=== PATIENT | female | born 1955 | race Caucasian/White ===

== ENCOUNTER 2019-01-01 11:29 | Emergency (ER) | payer OTHER ==
--- OUTSIDE RECORDS SUMMARY | 2019-01-01 11:55 | XMS REPORT | Continuity of Care Document ---
:1955 External Reference #:[id number] Author Name Evonne Garza Care Team Providers Name Role Phone Adebayo Chao MD Primary Care Physician Unavailable Payers Date Identification Numbers Payment Provider Subscriber Policy Number: [id number] Daniel Acveedo PayID: [id number] [address] [place] [address] Problems Active Problems Provider Date Closed fracture of acromial end of clavicle Agustín Lubin M.D. Onset: 07/05 Family History Date Family Member(s) Observation Comments General Heart Disease Social History Type Date Description Comments Sex Unknown Lives With Alone Occupation Retired ETOH Use Drinks 3 Alcoholic Beverages Per Day Tobacco Use Start: Unknown Patient is a current smoker, smokes every day Smoking Status Reviewed: 12/21/18 Patient is a current smoker, smokes every day Exercise Type/Frequency Exercises sporadically Allergies, Adverse Reactions, Alerts Active Allergies Reaction Severity Comments Date Tetracycline 07/05/2018 Medications Active Medications SIG Qnty Indications Ordering Provider Date Tlso Brace When Oob S22.009A Vassilios 12/21/2018 MD Francheska Cyclobenzaprine HCL take 1 tablet 60tabs S42.031A Agustín Lubin, 2018 10mg up to three M.D. Tablets times a day as needed Oxycodone-Acetaminophen 1 to 2 tabs PO 28tabs S42.031A Agustín Lubin, bid prn M.D. 5-325mg Tablets Hydrochlorothiazide/With 1 daily Unknown spironol 25-25 Carvedilol 1 tab by mouth Unknown 25mg Tablets twice a day Naproxen Sodium Unknown 220mg Tablets Omeprazole 1 by mouth Unknown 40mg Capsules DR every day History Medications Cyclobenzaprine HCL 1 by mouth three Unknown - 07/04/2018 10mg Tablets times a day Hydrocodone-Acetaminophen 1 or 2 tabs by mouth Unknown - 12/2018 5-325mg every 6-8 hours as Tablets needed for pain Vital Signs Date Vital Result Comment 12/21/2018 2:34pm Height 61 inches 5'1" Weight 109.00 lb BP Systolic Sitting 110 mmHg BP Diastolic Sitting 70 mmHg Pain Level 7 BMI (Body Mass Index) 20.6 kg/m2 09/16/2018 11:15am Height 61 inches 5'1" Weight 109.00 lb Heart Rate 72 /min BP Systolic Recheck 118 mmHg BP Diastolic Recheck 74 mmHg Respiratory Rate 16 /min Body Temperature 97.9 F BMI (Body Mass Index) 20.6 kg/m2 08/04/2018 9:58am Height 61 inches 5'1" Weight 112.00 lb Heart Rate 72 /min BP Systolic Recheck 118 mmHg BP Diastolic Recheck 80 mmHg Respiratory Rate 16 /min Body Temperature 98.0 F BMI (Body Mass Index) 21.2 kg/m2 07/14/2018 10:24am Height 61 inches 5'1" Weight 108.00 lb Heart Rate 80 /min BP Systolic Recheck 122 mmHg BP Diastolic Recheck 76 mmHg Respiratory Rate 16 /min Body Temperature 97.9 F BMI (Body Mass Index) 20.4 kg/m2 07/05/2018 11:49am Height 61 inches 5'1" Weight 110.00 lb Heart Rate 80 /min BP Systolic Recheck 134 mmHg BP Diastolic Recheck 84 mmHg Respiratory Rate 16 /min Body Temperature 97.8 F BMI (Body Mass Index) 20.8 kg/m2 Encounters Type Date Location Provider Dx Diagnosis Office Visit 09/16/2018 Orthopedic Agustín Lubin, S42.031D Disp fx of 11:15a [facility] Super[facility] AT M.D. lateral end r [place] clavicle, subs for fx w routn heal Office Visit 08/04/2018 Orthopedic Agustín Lubin S42.031D Disp fx of 10:00a [facility] AT M.D. lateral end r [place] clavicle, subs for fx w routn heal Office Visit 07/14/2018 Orthopedic Agustín Lubin, S42.031D Disp fx of 10:15a [facility] AT M.D. lateral end r [place] clavicle, subs for fx w routn [facility] Office Visit 07/05/2018 Orthopedic Agustín Lubin, S42.031A Disp fx of 11:30a [facility] AT M.D. lateral end of [place] right clavicle, init for clos fx Plan of Treatment Future Appointment(s):01/20/2019 1:30 pm - A[facility] Bustillo at [facility]12/21/2018 - Isidra Pritchard, MDS22.009A Unsp fracture of unsp thoracic vertebra, init for clos fxNew Medication:Tlso Brace - When OobNew Xrays:CT Spine Lumbar W/O, Ordered: 12/21/18Follow up:RV in 1-2 weeks with Myron
--- NOTE | 2019-01-01 12:59 | ED ---
Adult Trauma - HPI Summary HPI Summary: A 63 y/o female presents to [facility] with a chief complaint of a neck and left shoulder pain today. She says that she woke up with this pain. Her family claims that she may have been falling these past few weeks. She has a broken clavicle on her right side and 3 broken ribs on her left side on 07/03/18. On she had a compound fracture and a few weeks ago she reports that she broke more ribs. An MRI of her back was done one week ago, but they do not know the results. The patent is a smoker, smoking 2 ppd and has been taking Tramadol and muscle relaxers. She rates her pain as a 10/10 in severity. She was seen at [facility] for her previous injuries. 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 Mechanism of Injury: Unknown - potentially from falls Ambulatory at the Scene: Yes Onset/Duration: Started Weeks Ago, Still Present Onset of Pain: Days, Post Accident, Prior to Arrival Onset Severity: Severe Current Severity: Severe Pain Intensity: 10 Pain Scale Used: 0-10 Numeric Location: Neck, Other - left shoulder Aggravating Factor(s): Nothing Alleviating Factor(s): Nothing Associated Signs & Symptoms: Negative: Fever - Allergy/Home Medications Allergies/Adverse Reactions: Allergies Allergy/AdvReac Type Severity Reaction Status Date / Time tetracycline Allergy Swelling Verified 01/01/19 11:39 Of Face,Lips,& Throat Home Medications: Home Medications Carvedilol TAB NF [Coreg TAB NF] 12.5 mg PO BEDTIME 01/01/19 [History Confirmed 01/01/19] Carvedilol TAB NF [Coreg TAB NF] 25 mg PO DAILY 01/01/19 [History Confirmed ] Cilostazol TAB* [Pletal TAB*] 100 mg PO DAILY 01/01/19 [History Confirmed ] Cyclobenzaprine TAB* [Flexeril 10 MG TAB*] 10 mg PO TID PRN 01/01/19 [History Confirmed 01/01/19] Omeprazole 40 mg PO DAILY 01/01/19 [History Confirmed 01/01/19] Spironolact/Hydrochlorothiazid [Aldactazide 25-25 mg-] 1 tab PO DAILY 01/01/19 [ History Confirmed 01/01/19] traMADol TAB* [Ultram*] 25 mg PO Q8H PRN 01/01/19 [History Confirmed 01/01/19] PMH/Surg Hx/FS Hx/Imm Hx Endocrine/Hematology History: Denies: Hx Diabetes Cardiovascular History: Reports: Hx Hypertension Infectious Disease History: No Infectious Disease History: Denies: Traveled Outside the [place] in Last 30 Days - Family History Known Family History: Positive: Hypertension, Diabetes - Social History Alcohol Use: Daily Alcohol Amount: 1-2 bottles wine daily - has not drank in 2 weeks Substance Use Type: Reports: None Smoking Status (MU): Heavy Every Day Tobacco Smoker Review of Systems Negative: Fever Positive: Arthralgia - left shoulder pain, Myalgia - neck pain All Other Systems Reviewed And Are Negative: Yes Physical Exam - Summary Physical Exam Summary: VITAL SIGNS: Reviewed. GENERAL: Patient is a well-developed and nourished FEMALE who is lying comfortable in the stretcher. Patient is not in any acute respiratory distress. HEAD AND FACE: No signs of trauma. No ecchymosis, hematomas or skull depressions. No sinus tenderness. EYES: PERRLA, EOMI x 2, No injected conjunctiva, no nystagmus. EARS: Hearing grossly intact. Ear canals and tympanic membranes are within normal limits. MOUTH: Oropharynx within normal limits. NECK: Supple, trachea is midline, no adenopathy, no JVD, no carotid bruit, c- spine tenderness CHEST: Symmetric, no tenderness at palpation. LUNGS: Clear to auscultation bilaterally. No wheezing or crackles. CVS: Regular rate and rhythm, S1 and S2 present, no murmurs or gallops appreciated. ABDOMEN: Soft, non-tender. No signs of distention. No rebound, no guarding, and no masses palpated. Bowel sounds are normal. EXTREMITIES: C-spine tenderness, decreased ROM left shoulder secondary to pain, good pulses, good capillary refill. NEURO: Alert and oriented x 3. No acute neurological deficits. Speech is normal and follows commands. SKIN: Dry and warm. Triage Information Reviewed: Yes Vital Signs On Initial Exam: Initial Vitals Temp Pulse Resp BP Pulse Ox 98.4 F 96 16 109/81 93 01/01/19 11:34 01/01/19 11:34 01/01/19 11:34 01/01/19 11:34 01/01/19 11:34 Vital Signs Reviewed: Yes Diagnostics - Vital Signs Vital Signs Temp Pulse Resp BP Pulse Ox 01/01/19 11:34 98.4 F 96 16 109/81 93 - Laboratory Lab Statement: Any lab studies that have been ordered have been reviewed, and results considered in the medical decision making process. - Radiology shoulder x-ray Radiology Interpretation Completed By: Radiologist Summary of Radiographic Findings: 1. OSTEOPENIA. 2. OSTEOARTHRITIS. 3. NO ACUTE OSSEOUS INJURY. IF SYMPTOMS PERSIST, RECOMMEND REPEAT IMAGING. ED physician has reviewed this imaging report. - CT cervical spine CT Interpretation Completed By: Radiologist Summary of CT Findings: 1. OSTEOPENIA. 2. DEGENERATIVE DISC DISEASE AND OSTEOARTHRITIS. 3. THERE IS MULTILEVEL NEUROFORAMINAL NARROWING DESCRIBED ABOVE. 4. THERE IS MILD NARROWING OF THE CENTRAL CANAL C4-C5. ED physician has reviewed this imaging report. Adult Trauma Course/Dx - Course Assessment/Plan: A 63 y/o female presents to [facility] with a chief complaint of a neck and left shoulder pain today. She says that she woke up with this pain. Her family claims that she may have been falling these past few weeks. She has a broken clavicle on her right side and 3 broken ribs on her left side on . On 12/09/18 she had a compound fracture and a few weeks ago she reports that she broke more ribs. An MRI of her back was done one week ago, but they do not know the results. The patent is a smoker, smoking 2 ppd and has been taking Tramadol and muscle relaxers. She rates her pain as a 10/10 in severity. She was seen at [facility] for her previous injuries. Shoulder X ray IMPRESSION: 1. OSTEOPENIA. 2. OSTEOARTHRITIS. 3. NO ACUTE OSSEOUS INJURY. IF SYMPTOMS PERSIST, RECOMMEND REPEAT IMAGING. C spine CT IMPRESSION: 1. OSTEOPENIA. 2. DEGENERATIVE DISC DISEASE AND OSTEOARTHRITIS. 3. THERE IS MULTILEVEL NEUROFORAMINAL NARROWING DESCRIBED ABOVE. 4. THERE IS MILD NARROWING OF THE CENTRAL CANAL C4-C5. In the ED course the patient was given Decadron, Toradol and [place] for pain. Therefore the patient will be discharged home with follow-up with primary care physician. Patient is hemodynamically after stable alert oriented 3. - Diagnoses Provider Diagnoses: Neck pain, Shoulder pain Discharge - Sign-Out/Discharge Documenting (check all that apply): Patient Departure - DC Patient Received Moderate/Deep Sedation with Procedure: No - Discharge Plan Condition: Stable Disposition: HOME Patient Education Materials: Shoulder Pain (ED), Neck Pain (ED) Referrals: Jeremie MARIE,Adebayo Connors [Primary Care Provider] - (2-3 days) Additional Instructions: FOLLOW UP WITH YOUR PRIMARY CARE PROVIDER WITHIN 2-3 DAYS. RETURN TO THE ED FOR ANY WORSENING OR NEW SYMPTOMS. - Billing Disposition and Condition Condition: STABLE Disposition: Home - Attestation Statements Document Initiated by Philipibe: Yes Documenting Scribe: Mazin Natarajan Provider For Whom Elizabeth is Documenting (Include Credential): Jl Meng MD Scribe Attestation: Mazin Mclaughlin scribed for Jl Meng MD on 01/02/19 at 4. Scribe Documentation Reviewed: Yes Provider Attestation: The documentation as recorded by the Mazin irvin accurately reflects the service I personally performed and the decisions made by Jl hughes MD Status of Scribe Document: Viewed
[2019-01-01] MEDS ORDERED: Ketorolac *IM* INJ* 60 MG/2 ML VIAL IM ONE (15:06)
[2019-01-01] MEDS ORDERED: HYDROcodone/ACETAMIN 5-325 MG* 1 TAB PO ONE (15:06)
[2019-01-01] MEDS ORDERED: Dexamethasone IV* 4 MG/ML 1 ML (4 MG) IM ONE (15:06)
[2019-01-01 16:01] VITALS: BP 136/83
== END 2019-01-01 15:58 | disposition home or self-care (01) ==
LOC: ED 11:29
DX: M54.2 Cervicalgia (principal); M25.512 Pain in left shoulder; I10 Essential (primary) hypertension; F17.210 Nicotine dependence, cigarettes, uncomplicated; M85.80 Other specified disorders of bone density and structure, unspecified site; M19.90 Unspecified osteoarthritis, unspecified site
CPT/HCPCS: 72125; 96372; 96374; 99283; J1100; J1885

== ENCOUNTER 2019-12-08 09:33 | Observation (INO) | payer MEDICARE ==
[2019-12-08 10:35] LABS: ABS Basophils 0.1 10^3/ul (0-0.2); ABS Eosinophils 0.1 10^3/ul (0-0.6); ABS Lymphocytes 1.7 10^3/ul (1.0-4.8); ABS Monocytes 0.6 10^3/ul (0-0.8); Eosinophil % 3.1 %; Hematocrit 37 % (35-47); Hemoglobin 13.3 g/dL (12.0-16.0); Mean Corpuscular HGB Conc 36 g/dL (31-36); Mean Corpuscular Hemoglobin 36 pg (27-31); Mean Corpuscular Volume 100 fL (80-97); Platelet Count 263 10^3/uL (150-450); Red Blood Count 3.67 10^6 /uL (3.70-4.87); Red Cell Distribution Width 12 % (10-15); White Blood Count 4.5 10^3/uL (3.5-10.8)
[2019-12-08 10:40] LABS: Activated Partial Thrombo Time 35.3 seconds (26.0-38.0); INR 1.01 (0.82-1.09)
[2019-12-08 10:56] LABS: BUN/Creatinine Ratio 16.1 (8-20); Calcium 9.1 mg/dL (8.6-10.3); EGFR African American 131.5 (>60); EGFR Non-African American 108.6 (>60); Potassium 3.7 mmol/L (3.5-5.0)
[2019-12-08 11:35] LABS: BUN/Creatinine Ratio 16.1 (8-20); Calcium 8.9 mg/dL (8.6-10.3); EGFR African American 131.5 (>60); EGFR Non-African American 108.6 (>60); Potassium 3.6 mmol/L (3.5-5.0)
[2019-12-08] MEDS ORDERED: Heparin 2 UNITS/ML 1000 mls 2,000 ML IV ONE (12:35)
[2019-12-08] MEDS ORDERED: Lidocaine 1% VIAL 10 MG/ML VIAL ONE (12:35)
[2019-12-08] MEDS ORDERED: Iohexol 350 (CONTRAST) 200 ML MDV IV ONE (12:35)
[2019-12-08] MEDS ORDERED: Heparin 1,000 UNIT/ML CATH LAB 1,000 10 ml (10,000 UNITS) IV ONE (14:02)
[2019-12-08] MEDS ORDERED: fentaNYL 100 mcg/2 ml 50 MCG/ML VIAL ONE ×3 (14:02→16:45)
[2019-12-08] MEDS ORDERED: Midazolam 5 mg/5 ml VIAL 1 mg/ml 5 ml VIAL (5 mg) ONE (14:02)
[2019-12-08] MEDS ORDERED: Atropine 0.1 MG/ML 10 ml SYR (1 mg) ONE ×2 (15:27→16:36)
[2019-12-08] MEDS ORDERED: hydrALAZINE 20 mg/ml 1 ML Vial IV ONE (16:00)
[2019-12-08] MEDS ORDERED: Heparin 2 UNITS/ML 1000 mls 1,000 ML IV ONE (16:44)
[2019-12-08] MEDS ORDERED: Ondansetron 4 mg VIAL 2 MG/ML 2 ml VIAL IV PRN (17:09)
[2019-12-08] MEDS ORDERED: HYDROmorphone 1 MG/1 ML SYRINGE ONE (19:04)
[2019-12-08] MEDS ORDERED: Prochlorperazine 5 mg/ml 2 ml VIAL (10 mg) IV PRN (21:49)
[2019-12-09 05:45] LABS: ABS Eosinophils 0.1 10^3/ul (0-0.6); ABS Lymphocytes 1.3 10^3/ul (1.0-4.8); ABS Monocytes 0.8 10^3/ul (0-0.8); Hematocrit 33 % (35-47); Hemoglobin 11.6 g/dL (12.0-16.0); Mean Corpuscular HGB Conc 35 g/dL (31-36); Mean Corpuscular Hemoglobin 35 pg (27-31); Mean Corpuscular Volume 100 fL (80-97); Mean Platelet Volume 6.8 fL (7.4-10.4); Platelet Count 254 10^3/uL (150-450); Red Blood Count 3.29 10^6 /uL (3.70-4.87); Red Cell Distribution Width 13 % (10-15); White Blood Count 6.5 10^3/uL (3.5-10.8)
[2019-12-09 05:59] LABS: BUN/Creatinine Ratio 18.9 (8-20); Calcium 8.7 mg/dL (8.6-10.3); EGFR African American 140.1 (>60); EGFR Non-African American 115.8 (>60); Magnesium 1.4 mg/dL (1.9-2.7); Potassium 3.4 mmol/L (3.5-5.0)
[2019-12-09] MEDS ORDERED: Magnesium Sulfate IV 3 GM in NS 0.9% 100 ml BAG 100 ML IVPB ONE (08:16)
[2019-12-09] MEDS ORDERED: Spironolactone/HCTZ 25-25 mg PO SCH (09:00)
[2019-12-09 14:09] VITALS: BP 150/70
== END 2019-12-09 14:00 | disposition home or self-care (01) ==
LOC: CHICATH 09:33 → MEDTELE 09:33
PROVIDERS: ADMIT Hospitalist; ATTEND Hospitalist
DX: I70.213 Atherosclerosis of native arteries of extremities with intermittent claudication, bilateral legs (principal)

== ENCOUNTER 2023-05-07 12:28 | Observation (INO) ==
[~2023-05-07 12:28] MED LIST: Midazolam 10 mg/10 ml VIAL 1 mg/ml 10 ml VIAL (10 mg) IV SLOW PU ONE; NS 0.9% 1000 ml BAG 1,000 ML IV ONE; fentaNYL 100 mcg/2 ml 50 MCG/ML VIAL IV SLOW PU ONE
[2023-05-07] MEDS ORDERED: fentaNYL 100 mcg/2 ml 50 MCG/ML VIAL ONE (13:48)
[2023-05-07] MEDS ORDERED: VERAPAMIL 2.5 MG/ML 2 ML VIAL ** 5 mg/2 ml ONE (13:48)
[2023-05-07] MEDS ORDERED: Heparin 1,000 UNIT/ML 10 ml (10,000 UNITS) CATHLAB/DIALYSIS ONE (13:48)
[2023-05-07] MEDS ORDERED: Midazolam 5 mg/5 ml VIAL 1 mg/ml 5 ml VIAL (5 mg) ONE (13:48)
[2023-05-07] MEDS ORDERED: Heparin 2 UNITS/ML 1000 mls 3,000 ML IV ONE (13:48)
[2023-05-07] MEDS ORDERED: Iohexol 350 (CONTRAST) 200 ML MDV IV ONE (13:49)
[2023-05-07] MEDS ORDERED: Lidocaine 1% MPF 5 ML VIAL ONE (13:49)
[2023-05-07] MEDS ORDERED: Iohexol 350 (CONTRAST) 100 ML PAK IV ONE (13:49)
[2023-05-07] MEDS ORDERED: NITROGLYCERIN ONE (13:49)
[2023-05-07] MEDS ORDERED: niCARdipine 0.1MG/ML IVPREMIX 20 MG/200 ML BAG IV ONE (13:54)
[2023-05-07] MEDS ORDERED: Ondansetron 4 mg VIAL 2 MG/ML 2 ml VIAL IV PRN (15:51)
[2023-05-07] MEDS ORDERED: Atropine 0.1 MG/ML 10 ml SYR (1 mg) ONE (17:52)
[2023-05-07] MEDS ORDERED: Magnesium Sulfate 2 gm BAG 2 GM/50 ML BAG IVPB ONE (18:51)
[2023-05-07] MEDS ORDERED: Acetaminophen IV 1 GM/100ML 1,000 MG/100 ML BAG IV PRN (19:06)
[2023-05-08 04:52] LABS: ABS Eosinophils 0.3 10^3/uL (0.0-0.5); ABS Monocytes 1.2 10^3/uL (0.0-0.9); ABS Neutrophils 4.2 10^3/uL (1.5-7.6); Eosinophil % 3.8 %; Hematocrit 38.1 % (35-45); Lymphocyte % 14.9 %; Mean Corpuscular Hemoglobin 34.9 pg (27-33); Mean Corpuscular Hgb Conc 34.1 g/dL (31-36); Mean Corpuscular Volume 102.3 fL (80-97); Mean Platelet Volume 8.1 fL (7.5-11.2); Nucleated Red Blood Cells % 0.1 %/100WBC (0.0-0.8); Platelet Count 228 10^3/uL (150-450); Red Blood Count 3.72 10^6/uL (3.63-4.92); Red Cell Distribution Width 13.4 % (12-17); White Blood Count 6.7 10^3/uL (3.8-11.8)
[2023-05-08 09:40] LABS: Blood Urea Nitrogen 14 mg/dL (6-24); CO2 Carbon Dioxide 25 mmol/L (22-32); Calcium 9.1 mg/dL (8.6-10.3); Chloride 101 mmol/L (101-111); Creatinine, Serum 0.71 mg/dL (0.51-0.95); Glucose 167 mg/dL (70-100); Sodium 133 mmol/L (135-145)
[2023-05-08 10:00] LABS: Anion Gap 7 mmol/L (2-16)
[2023-05-08 11:38] VITALS: BP 116/77
== END 2023-05-08 12:30 | disposition home or self-care (01) ==
LOC: ICU 12:28 → CHICATH 12:28
PROVIDERS: ADMIT Specialist; ATTEND Student in an Organized Health Care Education/Training Program